=== PATIENT | female | born 1970 | race Two or more races ===

== ENCOUNTER 2016-10-18 18:38 | Emergency (ER) | payer SELFPAY ==
[~2016-10-18] VITALS: Ht 172.7 cm; Wt 113.4 kg
[~2016-10-18 18:38] MED LIST: ASP325EC PO; LIS10T PO
[2016-10-18 19:24] LABS: Basophils # (auto) 0.1 uL; Eosinophils # (auto) 0.1 uL; Eosinophils % (auto) 1.1 % (0.0-7.0); Hematocrit 39.8 % (36.0-46.0); Hemoglobin 13.2 g/dL (12.2-16.2); Lymphocytes % (auto) 18.2 % (10.0-50.0); Mean Corpuscular Hgb Conc. 33.2 g/dL (32.0-36.0); Mean Corpuscular Volume 84.3 fL (80.0-100.0); Mean Platelet Volume 7.6 fL (7.4-10.4); Monocytes # (auto) 0.6 uL; Monocytes % (auto) 5.6 % (0.0-12.0); Neutrophils # (auto) 8.1 uL; Neutrophils % (auto) 74.1 % (37.0-80.0); Platelet Count (auto) 317 10^3/uL (140-450); Red Cell Distribution Width 14.6 % (11.6-16.0); White Blood Cell 10.9 10^3/uL (4.4-10.8)
[2016-10-18 19:40] LABS: BUN/Creatinine Ratio 15.3; Bilirubin, Total 0.3 mg/dL (0.2-1.0); Calcium 9.3 mg/dL (8.5-10.1); Potassium 3.8 mmol/L (3.5-5.1); Total Protein 7.6 g/dL (6.4-8.2)
[2016-10-18 21:08] LABS: Urine Bilirubin Negative (Negative); Urine Blood Negative /uL (Negative); Urine Color Yellow (Yellow); Urine Glucose Normal (Normal); Urine Ketone Negative (Negative); Urine Nitrite Negative (Negative); Urine RBC <1 /hpf (0 - 4); Urine Squamous Epithelial Cell FEW /hpf (<5); Urine Urobilinogen Normal (Negative); Urine pH 6.5 (5.0-8.0)
[2016-10-18 21:42] VITALS: BP 149/79
== END 2016-10-18 23:36 | disposition home or self-care (01) ==
LOC: EDBD 18:38 → ER 18:42
DX: R51 Headache (principal); F41.9 Anxiety disorder, unspecified; J32.0 Chronic maxillary sinusitis; W01.198A Fall on same level from slipping, tripping and stumbling with subsequent striking against other object, initial encounter; Y93.89 Activity, other specified; Y92.89 Other specified places as the place of occurrence of the external cause; Y99.8 Other external cause status
CPT/HCPCS: 36415; 70450; 70480; 70486; 71010; 80053; 81001; 84702; 85025; 93005

== ENCOUNTER 2018-10-09 14:52 | Emergency (ER) | payer OTHER ==
[~2018-10-09] VITALS: Ht 172.7 cm; Wt 149.2 kg
[2018-10-09 15:08] VITALS: BP 141/93
== END 2018-10-09 18:08 | disposition home or self-care (01) ==
LOC: EDBD 14:52 → ER 14:52
DX: S80.01XA Contusion of right knee, initial encounter (principal); S59.901A Unspecified injury of right elbow, initial encounter; I10 Essential (primary) hypertension; Z90.710 Acquired absence of both cervix and uterus; Z90.89 Acquired absence of other organs; Z88.8 Allergy status to other drugs, medicaments and biological substances; W01.0XXA Fall on same level from slipping, tripping and stumbling without subsequent striking against object, initial encounter; Y93.89 Activity, other specified; Y99.8 Other external cause status; Y92.89 Other specified places as the place of occurrence of the external cause
CPT/HCPCS: 29105; 73080; 73562

== ENCOUNTER 2021-06-06 22:23 | Emergency (ER) | payer OTHER ==
[~2021-06-06] VITALS: Ht 172.7 cm; Wt 141.5 kg
[2021-06-07] MEDS ORDERED: ACETAMINOPHEN 325 MG TAB PO ONE (01:15)
[2021-06-07 03:00] VITALS: BP 171/95
== END 2021-06-07 06:23 | disposition home or self-care (01) ==
LOC: ER 22:26
DX: J32.0 Chronic maxillary sinusitis (principal); K04.7 Periapical abscess without sinus; R51.9 Headache, unspecified; E66.9 Obesity, unspecified; M62.838 Other muscle spasm; I10 Essential (primary) hypertension; Z90.89 Acquired absence of other organs; Z90.710 Acquired absence of both cervix and uterus; Z88.8 Allergy status to other drugs, medicaments and biological substances; Z68.42 Body mass index [BMI] 45.0-49.9, adult; V43.52XA Car driver injured in collision with other type car in traffic accident, initial encounter; Y93.89 Activity, other specified; Y92.410 Unspecified street and highway as the place of occurrence of the external cause; Y99.8 Other external cause status
CPT/HCPCS: 70450; 70486; 72125

== ENCOUNTER → 2022-06-23 | Emergency (ER) | payer OTHER ==
[~2022-06-23] VITALS: Ht 157.5 cm; Wt 143.1 kg
[~2022-06-23] MED LIST changes: +ACETAMINOPHEN 325 MG TAB PO ONE; +ASPirin 325 MG TAB PO ONE; +ASPirin-EC 325mg tab PO ONE
[2022-06-23 02:28] LABS: Basophils # (auto) 0.1 10 ^3/uL (0-0.2); Eosinophils # (auto) 0.1 10 ^3/uL (0-0.8); Eosinophils % (auto) 1.7 % (0.0-7.0); Hematocrit 39.3 % (36.0-46.0); Hemoglobin 13.5 g/dL (12.2-16.2); Lymphocytes % (auto) 25.2 % (10.0-50.0); Mean Corpuscular Hemoglobin 30.5 pg (28.0-32.0); Mean Corpuscular Hgb Conc. 34.4 g/dL (32.0-36.0); Mean Corpuscular Volume 88.7 fL (80.0-100.0); Monocytes # (auto) 0.5 10 ^3/uL (0-1.3); Monocytes % (auto) 6.9 % (0.0-12.0); Neutrophils # (auto) 5.1 10 ^3/uL (1.6-8.6); Neutrophils % (auto) 65.2 % (37.0-80.0); Nucleated Red Blood Cells % 0.1 %; Red Blood Cells 4.43 10^6/uL (4.0-5.20); Red Cell Distribution Width 13.2 % (11.8-14.3); White Blood Cell 7.8 10^3/uL (4.4-10.8)
[2022-06-23 02:43] LABS: Albumin 3.8 g/dL (3.4-5.0); BUN/Creatinine Ratio 20.8; Calcium 9.7 mg/dL (8.5-10.1); Potassium 3.8 mmol/L (3.5-5.1)
[2022-06-23 02:46] LABS: Bilirubin, Total 0.6 mg/dL (0.2-1.0); Total Protein 6.8 g/dL (6.4-8.2)
[2022-06-23 09:26] VITALS: BP 170/101
== END | disposition short-term general hospital (02) ==
LOC: ER 01:27
DX: R07.89 Other chest pain (principal); F41.9 Anxiety disorder, unspecified; Z88.8 Allergy status to other drugs, medicaments and biological substances; Z90.49 Acquired absence of other specified parts of digestive tract; Z90.710 Acquired absence of both cervix and uterus; Z20.822 Contact with and (suspected) exposure to COVID-19
CPT/HCPCS: 36415; 71045; 80053; 84484; 85025; 85379; 87426; 93005